=== PATIENT | female | born 2000 | race African-American/Black ===

== ENCOUNTER 2021-02-25 16:40 | Emergency (ER) | payer MEDICAID, SELFPAY ==
--- NOTE | ~2021-02-25 | XR_ITS ---
EXAMINATION: XR CHEST CLINICAL INFORMATION: Chest pain COMPARISON: None TECHNIQUE: Frontal view of the chest was obtained. FINDINGS: Cardiac silhouette is normal in size. The lungs are well aerated. There is no lobar consolidation. No pleural effusion or pneumothorax. No gross osseous abnormality. XR/XR chest 1V IMPRESSION: No acute pulmonary pathology.
--- NOTE | 2021-02-25 16:51 | ECG_ITS ---
Test Reason : Chest pain Blood Pressure : / mmHG Vent. Rate : 086 BPM Atrial Rate : 086 BPM P-R Int : 132 ms QRS Dur : 074 ms QT Int : 374 ms P-R-T Axes : 041 055 016 degrees QTc Int : 447 ms Normal sinus rhythm Normal ECG When compared with ECG of 25-FEB-2021 16:55, No significant change was found Referred By: Jon Zhou Electronically Signed By:ROCIO JOHNSON MD
[2021-02-25 19:06] VITALS: BP 118/57; PULSE 78; RESP 18; TEMP 36.9; O2SAT 100; BMI 38.7
[2021-02-25 21:51] VITALS: BP 112/63; PULSE 87; RESP 18; TEMP 36.5; O2SAT 100
[2021-02-25 22:30] LABS: MANUAL DIFF FLAG NO
[2021-02-25 22:31] LABS: Basophils Percent Auto 0.3 % (0-2); Eosinophils Absolute Auto 0.3 X10*3/uL (0.0-0.4); Eosinophils Percent Auto 2.8 % (0-4); Hemoglobin 11.8 g/dl (12.0-16.0); Imm Gran Abs Auto 0.02 X10*3/uL (0.00-0.03); Imm Gran Pct Auto 0.2 % (0.0-0.4); Lymphocytes Absolute Auto 3.6 X10*3/uL (1.2-4.9); Lymphocytes Percent Auto 40.1 % (20-40); Mean Corpuscular HGB Conc 31.9 g/dl (31.0-35.0); Mean Corpuscular Hemoglobin 23.4 pg (27.0-33.0); Mean Corpuscular Volume 73.3 fL (80-98); Mean Platelet Volume 10.4 fL (9.4-12.3); Monocytes Absolute Auto 0.9 X10*3/uL (0.1-1.2); Monocytes Percent Auto 9.5 % (2-11); Neutrophils Absolute Auto 4.3 X10*3/uL (2.0-8.3); Neutrophils Percent Auto 47.1 % (45-73); Platelet Count 305 X10*3/uL (160-400); Red Blood Count 5.05 X10*6/uL (4.20-5.50); Red Cell Distribution Width 14.6 % (11.0-16.0); White Blood Count 9.1 X10*3/uL (4.8-10.8)
--- NOTE | 2021-02-25 22:38 | ED.CHESTPAIN ---
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 Chest pain started since yesterday, described as a constant dull aching pressure pain to the mid of her chest, no radiation, pain is moderate 7/10, breathing slow make it better, exertion or anxiety or stress make it worse. No other associated symptoms. No recent travel or prolonged immobilization, no lower extremity swelling or tenderness. No trauma to the chest. Related Data Allergies Allergy/AdvReac Type Severity Reaction Status Date / Time No Known Allergies Allergy Verified 02/25/21 21:42 Review of Systems Review of Systems: All other systems are reviewed and are negative Constitutional: Reports as per HPI and Reports no additional constitutional complaints Eyes: Reports as per HPI and Reports no additional eye complaints Reports system reviewed and no additional complaints, except as documented Cardiovascular: Reports as per HPI and Reports no additional cardiovascular complaints Respiratory: Reports as per HPI and Reports no additional respiratory complaints Gastrointestinal: Reports as per HPI and Reports no additional gastrointestinal complaints Genitourinary: Reports no additional female genitourinary complaints Musculoskeletal: Reports no additional musculoskeletal complaints Skin/Breast: Reports system reviewed and no additional complaints, except as docu Psychiatric: Reports no additional psychiatric complaints Endocrine: Reports no additional endocrine complaints Hematologic/Lymphatic: Reports no additional hematologic/lymphatic complaints Allergic/Immunologic: Reports no additional allergic/immunologic complaints Reports system reviewed and no additional complaints, except as documented and Reports Abnormal speech present [facility] Social History Social History Alcohol intake: never Patient Tobacco Use Status: Never used Tobacco Use of substances other than those prescribed or required for medical reasons: No Advance Directives: No Physical Exam Vital Signs: Vital Signs: Last Vital Signs Temp 97.7 F 02/25/21 21:51 Pulse 87 02/25/21 21:51 Resp 18 02/25/21 21:51 BP 112/63 02/25/21 21:51 Pulse Ox 100 02/25/21 21:51 Body Mass Index 38.7 Vital signs have been reviewed as appeared to be correct. Blood pressure normal. Heart rate normal. Respiration rate normal. Temperature normal. Oxygen saturation normal. Appearance: Alert. Oriented X3. No acute distress. Head: Normal external exam. Normocephalic. Atraumatic. No Hung signs noted. No raccoon eyes noted Eyes: PERRLA. EOMI. Conjunctiva and sclera normal. Eyelids normal. Subconjunctival hemorrhage at 04:00 o'clock of the left eye. ENT: TM's Normal. Pharynx normal. Uvula midline. Moist mucous membranes. No trismus noted. No drooling noted. No muffled voice noted. Neck: Normal inspection. Neck supple. FROM. No adenopathy. Thyroid Normal. No meningeal signs. No neck mass noted. CVS: Normal heart rate and rhythm. Heart sound normal. No murmurs noted. Pulses normal throughout. Respiratory: No respiratory distress. Painless inspiration. Breath sounds normal. No wheezes/rales/rhonchi noted. Chest nontender. No accessory muscle usage noted or decreased air movement noted. Abdomen: Soft and nontender. Bowel sounds normal in all 4 quadrants. No distention noted. No organomegaly noted. No visible injury noted. Back: No CVA tenderness. Full range of motion noted. Skin: Skin warm and dry. Normal skin color. Normal skin turgor. No rashes/lesions/lacerations noted. Extremities: No lower extremity edema. Extremities exhibit normal range of motion. Extremities nontender. Neuro: Oriented X 3. Cranial nerve exam: II-XII are grossly intact No motor deficit. No sensory deficit. Reflexes normal. Course Course Course Narrative: Assessment and plan; 20-year-old female came in with chest pain, patient has unremarkable workup, patient's symptoms likely to be anxiety/stress related. Will reassure discharged to follow-up with PCP. Reevaluation(s) Reevaluation #1: Patient left before full evaluation and discussing labs result. Time: 00:56 [facility] - Chest Pain Medical Records Data Attestation: I reviewed the patient's medical records. Lab Data Attestation: I reviewed the patient's lab results. Result diagrams: 02/25/21 22:23 02/25/21 22:23 Labs: Lab Results 02/25/21 02/25/21 02/25/21 Range/Units 22:23 22:23 22:23 WBC 9.1 (4.8-10.8) X10*3/uL RBC 5.05 (4.20-5.50) X10*6/uL Hgb 11.8 L (12.0-16.0) g/dl Hct 37.0 (37-47) % MCV 73.3 L (80-98) fL MCH 23.4 L (27.0-33.0) pg MCHC 31.9 (31.0-35.0) g/dl RDW 14.6 (11.0-16.0) % Plt Count 305 (160-400) X10*3/uL MPV 10.4 (9.4-12.3) fL Immature Gran % (Auto) 0.2 (0.0-0.4) % Neut % (Auto) 47.1 (45-73) % Lymph % (Auto) 40.1 H (20-40) % [place] % (Auto) 9.5 (2-11) % Eos % (Auto) 2.8 (0-4) % Baso % (Auto) 0.3 (0-2) % Lymph # (Auto) 3.6 (1.2-4.9) X10*3/uL [place] # (Auto) 0.9 (0.1-1.2) X10*3/uL Eos # (Auto) 0.3 (0.0-0.4) X10*3/uL Baso # (Auto) 0.0 (0.0-0.2) X10*3/uL Abs Immat Gran (auto) 0.02 (0.00-0.03) X10*3/uL Absolute Neuts (auto) 4.3 (2.0-8.3) X10*3/uL Absolute Nucleated RBC 0.000 (0.0-0.012) X10*3/uL Nucleated RBC % (auto) 0.0 (0.0-0.2) /100WBC Sodium 140 (135-145) mmol/L Potassium 4.1 (3.3-5.1) mmol/L Chloride 107 (96-108) mmol/L Carbon Dioxide 27 (22-29) mmol/L Anion Gap 10 L (12-20) BUN 9 (9-16) mg/dL Creatinine 0.61 (0.5-1.4) mg/dL Estim Creat Clear Calc 166.6 Estimated GFR > 60 Random Glucose 88 (60-115) mg/dL Calcium 9.7 (8.4-10.2) mg/dL Total Bilirubin 0.3 (0.0-1.0) mg/dL AST 25 (5-31) U/L ALT 37 H (0-31) U/L Alkaline Phosphatase 96 (39-117) U/L Troponin I High Sens < 3.5 (<3.5-17.0) ng/L Total Protein 7.0 (6.5-8.0) g/dL Albumin 4.2 (3.5-5.0) g/dL Imaging Data Chest x-ray: Radiologist's impression: No acute pulmonary pathology ECG Data ECG #1: Interpretation: Normal sinus rhythm, normal axis deviation, normal intervals, no ST-T changes. Discharge Plan Discharge Clinical Impression: Chest pain Patient Disposition: Home, Self-Care Instructions: Chest Pain (ED) Referrals: Physician,Unknown J [Primary Care Provider] - 2 days
[2021-02-25 22:50] LABS: Troponin-I High Sensitivity < 3.5 ng/L (<3.5-17.0)
[2021-02-25 22:53] LABS: Alanine Aminotransferase 37 U/L (0-31); Albumin Level 4.2 g/dL (3.5-5.0); Alkaline Phosphatase 96 U/L (39-117); Anion Gap 10 (12-20); Aspartate Amino Transferase 25 U/L (5-31); Bilirubin Total 0.3 mg/dL (0.0-1.0); Blood Urea Nitrogen 9 mg/dL (9-16); Calcium 9.7 mg/dL (8.4-10.2); Carbon Dioxide 27 mmol/L (22-29); Chloride 107 mmol/L (96-108); Creatinine Clr Calc Pharmacy 166.6; Estimated Glomerular Filt Rate > 60; Glucose Random 88 mg/dL (60-115); Potassium 4.1 mmol/L (3.3-5.1); Sodium 140 mmol/L (135-145)
--- NOTE | 2021-02-25 23:52 | PC.NURSE ---
Pt refusing blood draw at this time. Said she was poked 2 or 3 times and it hurts.
--- NOTE | 2021-02-26 00:24 | PC.NURSE ---
pt refused additional labs, states she is hear for her left eye. pt ride is present and pt just walked out.
== END 2021-02-26 00:24 | disposition home or self-care (01) ==
PROVIDERS: Emergency Provider Emergency Medicine
DX: R07.9 Chest pain, unspecified (principal)
CPT/HCPCS: 36415; 71045; 80053; 84484; 85025; 93005; 99283; 99284

== ENCOUNTER 2021-05-04 11:30 | Outpatient (REF) | payer MEDICAID, SELFPAY | END 2021-05-04 11:31 | disposition home or self-care (01) | LOC: HO.LAB 11:30 | PROVIDERS: Visit Provider Internal Medicine | DX: Z13.89 Encounter for screening for other disorder (principal) | CPT/HCPCS: 87635; C9803 ==

== ENCOUNTER 2022-12-28 10:37 | Outpatient (REF) | payer MEDICAID, SELFPAY ==
--- NOTE | ~2022-12-28 | XR_ITS ---
EXAMINATION: XR LUMBOSACRAL SPINE CLINICAL INFORMATION: Lower back pain with sciatica. COMPARISON: None available. TECHNIQUE: AP and lateral views of the lumbar spine and lateral view of the lumbosacral junction. FINDINGS: The vertebral bodies and posterior elements are normal. The disc spaces are preserved and the vertebral alignment is normal. The paraspinal soft tissues are normal. XR/XR lumbar spine 2-3V IMPRESSION: Unremarkable examination.
== END 2022-12-28 10:38 | disposition home or self-care (01) ==
LOC: HO.HHCX 10:37
PROVIDERS: Visit Provider Registered Nurse
DX: M54.50 Low back pain, unspecified (principal); A74.9 Chlamydial infection, unspecified; G89.29 Other chronic pain
CPT/HCPCS: 0353U; 72100

== ENCOUNTER 2022-12-28 19:14 | Outpatient (REF) | payer MEDICAID, SELFPAY ==
[2022-12-29 09:31] LABS: CT PCR NOT DETECTED (Not Detect.); NG PCR NOT DETECTED (Not Detect.)
== END 2022-12-28 19:15 | disposition home or self-care (01) ==
LOC: HO.HHCLNP 19:14
PROVIDERS: Visit Provider Registered Nurse
DX: Z20.2 Contact with and (suspected) exposure to infections with a predominantly sexual mode of transmission (principal); A74.9 Chlamydial infection, unspecified
CPT/HCPCS: 0353U

== ENCOUNTER 2023-02-16 14:32 | Outpatient (REF) | payer MEDICAID, SELFPAY ==
--- NOTE | 2023-02-16 14:37 | EMG_ITS ---
Chief complaint: And numbness Reason for referral: Evaluate for Carpal Tunnel Syndrome Referred by: Whitney Barr and Procedure done: Bilateral upper extremities NCS Precautions and/or limitations: Patient afraid of needles The limb temperature was monitored continuously and remained between 32-36 degrees C during the performance of the NCS. Nerve Conduction Studies Anti Sensory Summary Table ?Stim Site NR Onset (ms) Norm Onset (ms) Peak (ms) Norm Peak (ms) O-P Amp (?V) Norm O-P Amp Site1 Site2 Delta-0 (ms) Dist (cm) [place] (m/s) Norm [place] (m/s) Left Median Anti Sensory (2nd Digit) Wrist NR <3.6 >10 Wrist 2nd Digit 14.0 Right Median Anti Sensory (2nd Digit) Wrist NR <3.6 >10 Wrist 2nd Digit 14.0 Right Radial Anti Sensory (Thumb) Forearm ? 1.3 1.8 <3.1 37.4 Forearm Thumb 1.3 0.0 Left Ulnar Anti Sensory (5th Digit) Wrist ? 0.9 3.3 <3.7 18.3 >15.0 Wrist 5th Digit 0.9 14.0 156 Right Ulnar Anti Sensory (5th Digit) Wrist ? 0.9 2.9 <3.7 17.4 >15.0 Wrist 5th Digit 0.9 14.0 156 Motor Summary Table ?Stim Site NR Onset (ms) Norm Onset (ms) O-P Amp (mV) Norm O-P Amp iAmp (mV) Amp (1st) (%) Site1 Site2 Delta-0 (ms) Dist (cm) Troy (m/s) Norm [place] (m/s) Left Median Motor (Abd Poll Brev) Wrist ? 7.8 <3.9 6.9 >4.5 8.3 100.0 Elbow Wrist 0.6 20.0 333 >45 Elbow ? 8.4 5.0 6.1 72.5 Right Median Motor (Abd Poll Brev) Wrist ? 8.1 <3.9 4.8 >4.5 5.7 100.0 Elbow Wrist 0.8 20.0 250 >45 Elbow ? 8.9 3.9 4.9 81.3 Left Ulnar Motor (Abd Dig Minimi) Wrist ? 2.7 <3.0 9.0 >5 10.4 100.0 B Elbow Wrist 3.5 20.0 57 >45 B Elbow ? 6.2 8.4 9.8 93.3 A Elbow B Elbow 1.1 10.0 91 >45 A Elbow ? 7.3 7.8 9.4 86.7 Right Ulnar Motor (Abd Dig Minimi) Wrist ? 2.5 <3.0 7.5 >5 8.8 100.0 B Elbow Wrist 3.3 19.0 58 >45 B Elbow ? 5.8 9.6 11.3 128.0 A Elbow B Elbow 1.2 10.0 83 >45 A Elbow ? 7.0 8.7 10.3 116.0 FINDINGS: Bilateral median motor nerves showed prolonged distal latency, normal amplitude and normal conduction velocity. Question temporal dispersion. Bilateral median sensory nerves showed absent response. No needle EMG done. IMPRESSION: 1. This is an abnormal NCS. 2. There is electrodiagnostic evidence for bilateral moderate-severe median neuropathy at the wrist, consistent with carpal tunnel syndrome. 3. There is no electrodiagnostic evidence for ulnar neuropathy. Thank you for your kind referral. Noemy Ashley MD, [place] Board Certified, [place] [employer] and [employer] (ABPMR) Board Certified, [place] [employer] Electro[employer]ostic [employer] (ABEM) CODIN MTDD
== END 2023-02-16 14:33 | disposition home or self-care (01) ==
LOC: HO.NEURO 14:32
PROVIDERS: PCP Registered Nurse; Visit Provider Registered Nurse
DX: R20.0 Anesthesia of skin (principal); R20.2 Paresthesia of skin
CPT/HCPCS: 95911

== ENCOUNTER → 2023-02-16 14:37 | Outpatient (BNV) | payer MEDICAID, SELFPAY | PROVIDERS: PCP Registered Nurse; Visit Provider Physical Medicine & Rehabilitation | DX: G56.13 Other lesions of median nerve, bilateral upper limbs (principal); G56.03 Carpal tunnel syndrome, bilateral upper limbs | CPT/HCPCS: 95911 ==

== ENCOUNTER 2023-03-07 11:35 | Outpatient (REF) | payer MEDICAID, SELFPAY ==
[2023-03-07 13:45] LABS: Total Protein Urine Random < 7 mg/dL (<12)
[2023-03-07 13:53] LABS: Hematocrit 36.9 % (37.0-47.0); Hemoglobin 11.6 g/dl (12.0-16.0); Mean Corpuscular HGB Conc 31.4 g/dl (31.0-35.0); Mean Corpuscular Volume 76.4 fL (80.0-98.0); Mean Platelet Volume 10.3 fL (9.4-12.3); Platelet Count 331 X10*3/uL (160-400); Red Blood Count 4.83 X10*6/uL (4.20-5.50); Red Cell Distribution Width 14.6 % (11.0-16.0); White Blood Count 8.2 X10*3/uL (4.8-10.8)
[2023-03-07 14:03] LABS: Iron 209 mcg/dL (30-160); Percent Iron Saturation 63 % (15-50); Total Iron Binding Capacity 332 mcg/dL (228-428); Unsaturated Iron Binding 123 ug/dL
[2023-03-07 14:10] LABS: Alanine Aminotransferase 11 U/L (0-31); Albumin Level 4.3 g/dL (3.5-5.0); Alkaline Phosphatase 48 U/L (39-117); Anion Gap 11 (12-20); Aspartate Amino Transferase 14 U/L (5-31); Bilirubin Total 0.5 mg/dL (0.0-1.0); Blood Urea Nitrogen 9 mg/dL (9-16); Calcium 9.1 mg/dL (8.4-10.2); Carbon Dioxide 25 mmol/L (22-29); Chloride 106 mmol/L (96-108); Estimated Glomerular Filt Rate > 60; Glucose Random 73 mg/dL (60-115); Sodium 138 mmol/L (135-145); Total Protein 7.5 g/dL (6.5-8.0)
[2023-03-07 14:25] LABS: Creatinine Urine 111.95 mg/dL
[2023-03-07 14:33] LABS: Free T4 (Free Thyroxine) 0.87 ng/dL (0.71-1.85); Thyroid Stimulating Hormone 0.89 uIU/mL (0.32-4.0); Vitamin D 25-OH Total 24.7 ng/mL (>30)
[2023-03-07 14:50] LABS: CT PCR NOT DETECTED (Not Detect.); NG PCR NOT DETECTED (Not Detect.)
[2023-03-08 05:03] LABS: HBS Num1 > 1000.00 mIU/mL (0-7.99); HIV AB/AG Nonreactive (Nonreactive); HIV Num 1 0.05 S/CO (0.00-0.99); ~HepC Num1 0.09 S/CO (0.00-0.79); ~Hepatitis B Surface Antibody REACTIVE (Nonreactive); ~Hepatitis C Antibody Nonreactive (Nonreactive)
[2023-03-08 05:10] LABS: Syphilis Screen Nonreactive (Nonreactive)
[2023-03-09 21:34] LABS: C. trachomatis RNA TMA NOT DETECTED (NOT DETECTED); N. gonorrhoeae RNA TMA NOT DETECTED (NOT DETECTED)
== END 2023-03-07 11:36 | disposition home or self-care (01) ==
LOC: HO.HHCL 11:35
PROVIDERS: Visit Provider Family Medicine
DX: Z00.00 Encounter for general adult medical examination without abnormal findings (principal); O09.91 Supervision of high risk pregnancy, unspecified, first trimester; O26.891 Other specified pregnancy related conditions, first trimester; O99.011 Anemia complicating pregnancy, first trimester; O99.281 Endocrine, nutritional and metabolic diseases complicating pregnancy, first trimester; E05.90 Thyrotoxicosis, unspecified without thyrotoxic crisis or storm; E55.9 Vitamin D deficiency, unspecified; D50.9 Iron deficiency anemia, unspecified; Z11.3 Encounter for screening for infections with a predominantly sexual mode of transmission
CPT/HCPCS: 0353U; 36415; 80053; 81513; 82306; 82570; 83540; 84156; 84439; 84443; 85027; 86706; 86780; 86803; 87389; 87491; 87591

== ENCOUNTER 2024-07-18 10:51 | Outpatient (REF) | payer MEDICAID, SELFPAY ==
[2024-07-18 13:27] LABS: MANUAL DIFF FLAG NO
[2024-07-18 13:38] LABS: Basophils Percent Auto 0.2 % (0-2); Eosinophils Absolute Auto 0.1 X10*3/uL (0.0-0.4); Eosinophils Percent Auto 1.6 % (0-4); Hematocrit 36.8 % (37.0-47.0); Hemoglobin 11.2 g/dl (12.0-16.0); Imm Gran Abs Auto 0.03 X10*3/uL (0.00-0.03); Imm Gran Pct Auto 0.4 % (0.0-0.4); Lymphocytes Absolute Auto 2.2 X10*3/uL (1.2-4.9); Lymphocytes Percent Auto 27.4 % (20-40); Mean Corpuscular HGB Conc 30.4 g/dl (31.0-35.0); Mean Corpuscular Hemoglobin 22.2 pg (27.0-33.0); Mean Corpuscular Volume 72.9 fL (80.0-98.0); Mean Platelet Volume 10.8 fL (9.4-12.3); Monocytes Absolute Auto 0.7 X10*3/uL (0.1-1.2); Monocytes Percent Auto 8.6 % (2-11); Neutrophils Percent Auto 61.8 % (45-73); Platelet Count 368 X10*3/uL (160-400); Red Blood Count 5.05 X10*6/uL (4.20-5.50); Red Cell Distribution Width 14.5 % (11.0-16.0); White Blood Count 8.1 X10*3/uL (4.8-10.8)
[2024-07-18 13:51] LABS: Estimated Average Glucose 111 mg/dL; Hemoglobin A1c % 5.5 % (<6.0)
[2024-07-18 13:53] LABS: Cholesterol 134 mg/dL (<200); HDL Cholesterol 45 mg/dL (>40); Iron 30 mcg/dL (30-160); LDL Cholesterol Calculated 78 mg/dL (<100); Percent Iron Saturation 9 % (15-50); Total Iron Binding Capacity 334 mcg/dL (228-428); Triglycerides 55 mg/dL (<150); Unsaturated Iron Binding 304 ug/dL
[2024-07-18 14:18] LABS: TSH reflex Free T4 < 0.01 uIU/mL (0.32-4.0)
[2024-07-18 15:10] LABS: Free T4 (Free Thyroxine) 1.38 ng/dL (0.71-1.85)
== END 2024-07-18 10:52 | disposition home or self-care (01) ==
LOC: HO.HHCL 10:51
PROVIDERS: Visit Provider Nurse Practitioner
DX: D50.8 Other iron deficiency anemias (principal); E05.90 Thyrotoxicosis, unspecified without thyrotoxic crisis or storm; E66.813 Obesity, class 3; Z68.43 Body mass index [BMI] 50.0-59.9, adult; E66.01 Morbid (severe) obesity due to excess calories
CPT/HCPCS: 36415; 80061; 83036; 83540; 84439; 84443; 85025